=== PATIENT | male | born 1965 | race Caucasian/White ===

== ENCOUNTER 2024-02-19 18:48 | Inpatient (IN) | payer OTHER ==
[~2024-02-19] VITALS: Ht 188 cm; Wt 152.7 kg
[2024-02-19 21:29] LABS: BASOPHILS # (AUTO) 0.1 X10'3 (0-0.2); BASOPHILS % (AUTO) 0.8 % (0-1); EOSINOPHILS # (AUTO) 0.6 X10'3 (0-0.9); EOSINOPHILS % (AUTO) 5.7 % (0-6); HEMATOCRIT 37.9 % (42.0-52.0); HEMOGLOBIN 12.7 g/dl (14.0-17.9); LYMPHOCYTES % (AUTO) 20.8 % (21-51); MEAN CORPUSCULAR HEMOGLOBIN 30.9 PG (27.0-31.0); MEAN CORPUSCULAR HGB CONC 33.5 g/dL (33.0-36.5); MEAN CORPUSCULAR VOLUME 92.3 FL (78-98); MEAN PLATELET VOLUME 9.2 FL (7.4-10.4); MONOCYTES # (AUTO) 0.6 X10'3 (0-0.9); MONOCYTES % (AUTO) 6.3 % (2-12); NEUTROPHILS # (AUTO) 6.5 X10'3 (1.8-7.7); NEUTROPHILS % (AUTO) 66.4 % (42-75); PLATELET COUNT 184 X10'3 (140-440); RED BLOOD COUNT 4.11 X10'6 (4.70-6.10); RED CELL DISTRIBUTION WIDTH 14.9 % (11.5-14.5); WHITE BLOOD COUNT 9.7 X10'3 (4.5-11.0)
[2024-02-19 21:38] LABS: APTT 27 SECONDS (22-32); PROTHROMBIN TIME 10.9 SECONDS (9.0-12.0)
[2024-02-19 21:41] LABS: ALANINE AMINOTRANSFERASE 85 U/L (12-78); ALBUMIN 3.4 G/DL (3.4-5.0); ALBUMIN/GLOBULIN RATIO 0.8 (1.1-1.5); ALKALINE PHOSPHATASE 85 IU/L (46-116); ANION GAP 7 (8-16); ASPARTATE AMINO TRANSFERASE 74 U/L (10-37); BILIRUBIN,TOTAL 0.3 MG/DL (0.1-1.0); BLOOD UREA NITROGEN 18 MG/DL (7-18); BUN/CREATININE RATIO 17.8 (10.0-20.0); C-REACTIVE PROTEIN 1.06 MG/DL (0.0-0.5); CALCIUM 8.6 MG/DL (8.5-10.1); CHLORIDE 108 MMOL/L (99-107); CREATININE 1.01 MG/DL (0.60-1.10); GLUCOSE 99 MG/DL (70-104); POTASSIUM 3.4 MMOL/L (3.5-5.1); SODIUM 142 MMOL/L (135-145); TOTAL CARBON DIOXIDE 26.9 MMOL/L (24-32); TOTAL PROTEIN 7.8 G/DL (6.4-8.2); eCRCL 93 ML/MIN; eGFR 76 ML/MIN
[2024-02-19] MEDS: vancomycin/NS 1 GM ADD-VANTAGE 250 ML IV ONE (21:53)
[2024-02-19] MEDS: piperacillin/tazo 3.375gm/50ml 50 ML IV ONE (21:53)
[2024-02-20] VITALS (9 sets, daily range): BP systolic 131–149; BP diastolic 72–86; PULSE 56–69; RESP 14–17; TEMP 96–98.2; O2SAT 95–100
[2024-02-20] MEDS ORDERED: potassium Cl 40MEQ/1/2NS 520ml 520 ML IV PRN (00:40)
[2024-02-20] MEDS ORDERED: morphine 2 MG/ML inj. syringe IV PRN (00:40)
[2024-02-20] MEDS ORDERED: HYDROcodone/acetaminophen 5mg/325mg tablet PO PRN (00:40)
[2024-02-20] MEDS ORDERED: ondansetron/PF 4mg/2ml inj IV PRN (00:40)
[2024-02-20] MEDS ORDERED: mag hydrox/Alum hydrox/simeth 30ml oral suspension PO PRN (00:40)
[2024-02-20] MEDS ORDERED: acetaminophen 325mg tablet PO PRN ×2 (00:40)
[2024-02-20] MEDS ORDERED: magnesium 2GM in 50ml NS 50 ML IV PRN (00:40)
[2024-02-20] MEDS ORDERED: magnesium hydroxide 30ml (MOM) UD suspension PO PRN (00:40)
[2024-02-20] MEDS ORDERED: magnesium 4gm in 100ml NS 100 ML IV PRN (00:40)
[2024-02-20] MEDS ORDERED: magnesium Cl slow-release 64mg tablet PO PRN (00:40)
[2024-02-20] MEDS ORDERED: potassium Cl 20 mEq SR tablet PO PRN ×2 (00:40)
[2024-02-20 04:13] LABS: BILIRUBIN,URINE NEGATIVE (Neg); CLARITY,URINE CLEAR (Clear); COLOR,URINE YELLOW (Yellow); GLUCOSE, URINE NEGATIVE (Neg); KETONES,URINE NEGATIVE (Neg); LEUKOCYTE ESTERASE ,URINE NEGATIVE (Neg); NITRITES, URINE NEGATIVE (Neg); OCCULT BLOOD,URINE NEGATIVE (Neg); PROTEIN,URINE NEGATIVE (Neg); UROBILINOGEN,URINE 0.2 E.U/dL (0.2-1.0)
[2024-02-20 04:21] LABS: MAGNESIUM 2.1 MG/DL (1.5-2.4); POTASSIUM 3.5 MMOL/L (3.5-5.1)
[2024-02-20 04:22] LABS: UA COLLECTION TYPE URINAL
[2024-02-20 04:26] LABS: URINE AMPHETAMINE SCREEN POSITIVE (Neg); URINE BARBITUATE SCREEN NEGATIVE (Neg); URINE BENZODIAZEPINES SCREEN NEGATIVE (Neg); URINE CANNABINOID SCREEN NEGATIVE (Neg); URINE COCAINE SCREEN NEGATIVE (Neg); URINE METHADONE SCREEN NEGATIVE (Neg); URINE PHENCYCLIDINE SCREEN NEGATIVE (Neg)
[2024-02-20] MEDS: K and/or MAG REPLACEMENT MC SCH (08:00)
[2024-02-20] MEDS: piperacillin/tazo 3.375gm/50ml 50 ML IV SCH (09:42)
[2024-02-20] MEDS: heparin, porcine 5000 units/ml vial SQ SCH (10:00)
[2024-02-20] MEDS: docusate sod 100mg capsule PO SCH (10:00)
[2024-02-20 14:21] LABS: CHOL/HDL RATIO 4.4 (0.00-4.99); CHOLESTEROL 163 MG/DL (0-200); HDL CHOLESTEROL 37 MG/DL (35-60); LDL CHOLESTEROL 116 MG/DL (50-100); TRIGLYCERIDES 81 MG/DL (20-135)
[2024-02-20] MEDS: vancomycin/NS 1 GM ADD-VANTAGE 250 ML IV SCH (15:17)
[2024-02-21] VITALS (9 sets, daily range): BP systolic 136–176; BP diastolic 64–95; PULSE 49–79; RESP 14–18; TEMP 96.2–98; O2SAT 96–100
[2024-02-21 06:25] LABS: BASOPHILS % (AUTO) 0.4 % (0-1); EOSINOPHILS # (AUTO) 0.4 X10'3 (0-0.9); EOSINOPHILS % (AUTO) 5.8 % (0-6); HEMATOCRIT 35.8 % (42.0-52.0); HEMOGLOBIN 11.9 g/dl (14.0-17.9); LYMPHOCYTES # (AUTO) 1.9 X10'3 (1.1-4.8); LYMPHOCYTES % (AUTO) 26.7 % (21-51); MEAN CORPUSCULAR HEMOGLOBIN 30.8 PG (27.0-31.0); MEAN CORPUSCULAR HGB CONC 33.2 g/dL (33.0-36.5); MEAN CORPUSCULAR VOLUME 92.8 FL (78-98); MEAN PLATELET VOLUME 9.2 FL (7.4-10.4); MONOCYTES # (AUTO) 0.4 X10'3 (0-0.9); MONOCYTES % (AUTO) 5.1 % (2-12); NEUTROPHILS # (AUTO) 4.5 X10'3 (1.8-7.7); PLATELET COUNT 157 X10'3 (140-440); RED BLOOD COUNT 3.86 X10'6 (4.70-6.10); RED CELL DISTRIBUTION WIDTH 14.5 % (11.5-14.5); WHITE BLOOD COUNT 7.3 X10'3 (4.5-11.0)
[2024-02-21 06:35] LABS: ALANINE AMINOTRANSFERASE 60 U/L (12-78); ALBUMIN 2.8 G/DL (3.4-5.0); ALBUMIN/GLOBULIN RATIO 0.7 (1.1-1.5); ALKALINE PHOSPHATASE 67 IU/L (46-116); ANION GAP 5 (8-16); ASPARTATE AMINO TRANSFERASE 35 U/L (10-37); BILIRUBIN,TOTAL 0.4 MG/DL (0.1-1.0); BLOOD UREA NITROGEN 16 MG/DL (7-18); BUN/CREATININE RATIO 16.5 (10.0-20.0); CALCIUM 8.2 MG/DL (8.5-10.1); CHLORIDE 108 MMOL/L (99-107); CHOL/HDL RATIO 4.8 (0.00-4.99); CHOLESTEROL 163 MG/DL (0-200); CREATININE 0.97 MG/DL (0.60-1.10); GLUCOSE 99 MG/DL (70-104); HDL CHOLESTEROL 34 MG/DL (35-60); LDL CHOLESTEROL 118 MG/DL (50-100); MAGNESIUM 2.1 MG/DL (1.5-2.4); PHOSPHORUS 3.5 MG/DL (2.3-4.5); POTASSIUM 3.8 MMOL/L (3.5-5.1); SODIUM 141 MMOL/L (135-145); TOTAL CARBON DIOXIDE 28.3 MMOL/L (24-32); TOTAL PROTEIN 6.7 G/DL (6.4-8.2); TRIGLYCERIDES 103 MG/DL (20-135); eCRCL 97 ML/MIN; eGFR 79 ML/MIN
[2024-02-21 06:51] LABS: APTT 26 SECONDS (22-32)
[2024-02-21] MEDS ORDERED: AMOX-318 PO (09:59)
[2024-02-21] MEDS: VANCOMYCIN LEVEL IV ONE (14:30)
[2024-02-21] MEDS: atorvastatin 20mg tablet PO SCH (16:37)
[2024-02-22 03:44] VITALS: PULSE 62; RESP 15; O2SAT 98
[2024-02-22 07:15] LABS: BASOPHILS # (AUTO) 0.1 X10'3 (0-0.2); BASOPHILS % (AUTO) 0.8 % (0-1); EOSINOPHILS # (AUTO) 0.4 X10'3 (0-0.9); EOSINOPHILS % (AUTO) 5.8 % (0-6); HEMATOCRIT 37.8 % (42.0-52.0); HEMOGLOBIN 12.8 g/dl (14.0-17.9); LYMPHOCYTES # (AUTO) 1.8 X10'3 (1.1-4.8); LYMPHOCYTES % (AUTO) 25.8 % (21-51); MEAN CORPUSCULAR HEMOGLOBIN 31.4 PG (27.0-31.0); MEAN CORPUSCULAR HGB CONC 33.8 g/dL (33.0-36.5); MEAN CORPUSCULAR VOLUME 92.9 FL (78-98); MEAN PLATELET VOLUME 9.3 FL (7.4-10.4); MONOCYTES # (AUTO) 0.4 X10'3 (0-0.9); NEUTROPHILS # (AUTO) 4.3 X10'3 (1.8-7.7); NEUTROPHILS % (AUTO) 61.6 % (42-75); PLATELET COUNT 173 X10'3 (140-440); RED BLOOD COUNT 4.07 X10'6 (4.70-6.10); RED CELL DISTRIBUTION WIDTH 14.4 % (11.5-14.5); WHITE BLOOD COUNT 6.9 X10'3 (4.5-11.0)
[2024-02-22 07:33] LABS: APTT 27 SECONDS (22-32); PROTHROMBIN TIME 10.9 SECONDS (9.0-12.0)
[2024-02-22 07:48] LABS: ALANINE AMINOTRANSFERASE 60 U/L (12-78); ALBUMIN 2.9 G/DL (3.4-5.0); ALBUMIN/GLOBULIN RATIO 0.7 (1.1-1.5); ALKALINE PHOSPHATASE 75 IU/L (46-116); ANION GAP 5 (8-16); ASPARTATE AMINO TRANSFERASE 28 U/L (10-37); BILIRUBIN,TOTAL 0.2 MG/DL (0.1-1.0); BLOOD UREA NITROGEN 14 MG/DL (7-18); BUN/CREATININE RATIO 15.6 (10.0-20.0); CALCIUM 8.4 MG/DL (8.5-10.1); CHLORIDE 108 MMOL/L (99-107); GLUCOSE 99 MG/DL (70-104); MAGNESIUM 2.1 MG/DL (1.5-2.4); PHOSPHORUS 4.1 MG/DL (2.3-4.5); SODIUM 143 MMOL/L (135-145); TOTAL CARBON DIOXIDE 29.8 MMOL/L (24-32); TOTAL PROTEIN 7.1 G/DL (6.4-8.2); eCRCL 104 ML/MIN; eGFR 87 ML/MIN
[2024-02-22 08:00] VITALS: RESP 15
[2024-02-22 18:00] VITALS: BP 128/77; PULSE 60; RESP 15; TEMP 97.4; O2SAT 97
[2024-02-22 20:30] VITALS: RESP 16
[2024-02-22 22:00] VITALS: BP 162/78; PULSE 58; RESP 14; TEMP 98.6; O2SAT 100
[2024-02-22 23:45] VITALS: PULSE 58; RESP 16; O2SAT 98
[2024-02-23 03:32] VITALS: PULSE 60; RESP 12; O2SAT 98
[2024-02-23 06:00] VITALS: BP 151/61; PULSE 55; RESP 16; TEMP 98.7; O2SAT 98
[2024-02-23 06:58] LABS: APTT 27 SECONDS (22-32); PROTHROMBIN TIME 11.2 SECONDS (9.0-12.0)
[2024-02-23 07:01] LABS: BASOPHILS % (AUTO) 0.6 % (0-1); EOSINOPHILS # (AUTO) 0.4 X10'3 (0-0.9); HEMATOCRIT 38.6 % (42.0-52.0); LYMPHOCYTES # (AUTO) 1.9 X10'3 (1.1-4.8); LYMPHOCYTES % (AUTO) 26.4 % (21-51); MEAN CORPUSCULAR HEMOGLOBIN 31.5 PG (27.0-31.0); MEAN CORPUSCULAR HGB CONC 33.7 g/dL (33.0-36.5); MEAN CORPUSCULAR VOLUME 93.4 FL (78-98); MEAN PLATELET VOLUME 9.2 FL (7.4-10.4); MONOCYTES # (AUTO) 0.4 X10'3 (0-0.9); MONOCYTES % (AUTO) 6.1 % (2-12); NEUTROPHILS # (AUTO) 4.4 X10'3 (1.8-7.7); NEUTROPHILS % (AUTO) 60.9 % (42-75); PLATELET COUNT 184 X10'3 (140-440); RED BLOOD COUNT 4.14 X10'6 (4.70-6.10); RED CELL DISTRIBUTION WIDTH 14.5 % (11.5-14.5); WHITE BLOOD COUNT 7.2 X10'3 (4.5-11.0)
[2024-02-23 07:14] LABS: ALANINE AMINOTRANSFERASE 59 U/L (12-78); ALBUMIN 2.9 G/DL (3.4-5.0); ALBUMIN/GLOBULIN RATIO 0.7 (1.1-1.5); ALKALINE PHOSPHATASE 74 IU/L (46-116); ANION GAP 8 (8-16); ASPARTATE AMINO TRANSFERASE 30 U/L (10-37); BILIRUBIN,TOTAL 0.2 MG/DL (0.1-1.0); BLOOD UREA NITROGEN 14 MG/DL (7-18); BUN/CREATININE RATIO 16.7 (10.0-20.0); CALCIUM 8.5 MG/DL (8.5-10.1); CHLORIDE 107 MMOL/L (99-107); CREATININE 0.84 MG/DL (0.60-1.10); GLUCOSE 112 MG/DL (70-104); MAGNESIUM 1.9 MG/DL (1.5-2.4); PHOSPHORUS 4.1 MG/DL (2.3-4.5); POTASSIUM 3.9 MMOL/L (3.5-5.1); SODIUM 140 MMOL/L (135-145); TOTAL CARBON DIOXIDE 25.4 MMOL/L (24-32); TOTAL PROTEIN 7.2 G/DL (6.4-8.2); eCRCL 111 ML/MIN; eGFR > 90 ML/MIN
[2024-02-23 10:00] VITALS: BP 142/88; PULSE 56; RESP 18; TEMP 97.2; O2SAT 97
[2024-02-23] MEDS ORDERED: ATOR20TA66 PO (10:44)
[2024-02-23] MEDS ORDERED: AMOX-318 PO (10:44)
== END 2024-02-23 14:20 | disposition home or self-care (01) | DRG 603 ==
LOC: ER 18:50 → ED HOLD 02-20 00:49 → ORTHO 4S 02-20 09:36
PROVIDERS: ADMIT Family Medicine; ATTEND Family Medicine
PROC: 5A09357 Assistance with Respiratory Ventilation, Less than 24 Consecutive Hours, Continuous Positive Airway Pressure (ICD-10-PCS; 2024-02-20)
PROC: CW1D1ZZ Planar Nuclear Medicine Imaging of Lower Extremity using Technetium 99m (Tc-99m) (ICD-10-PCS; principal; 2024-02-21)
PROC: 5A09357 Assistance with Respiratory Ventilation, Less than 24 Consecutive Hours, Continuous Positive Airway Pressure (ICD-10-PCS; 2024-02-21)
DX: L03.115 Cellulitis of right lower limb (principal); Z68.41 Body mass index [BMI] 40.0-44.9, adult; E66.01 Morbid (severe) obesity due to excess calories; E78.5 Hyperlipidemia, unspecified; I10 Essential (primary) hypertension; R74.01 Elevation of levels of liver transaminase levels; G47.33 Obstructive sleep apnea (adult) (pediatric); G89.29 Other chronic pain
CPT/HCPCS: 36415; 73700; 78315; 80053; 80061; 80202; 80305; 81003; 83036; 83605; 83735; 84100; 84132; 84145; 85025; 85610; 85651; 85730; 86140; 87040; 94660; 94760; 99285; A6258; A6446; A6449; A9503; G0378; J1644; J2543; J3370; J7040

== ENCOUNTER 2025-06-07 09:21 | Inpatient (IN) | payer BC, MEDICAID ==
[~2025-06-07] VITALS: Ht 188 cm; Wt 150.0 kg
[~2025-06-07 09:21] MED LIST: AMOX-318 PO; ATOR20TA66 PO
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
[2025-06-07 10:08] LABS: LEUKOCYTE ESTERASE ,URINE MODERATE (Neg); NITRITES, URINE NEGATIVE (Neg); OCCULT BLOOD,URINE SMALL (Neg)
[2025-06-07 10:10] LABS: MEAN PLATELET VOLUME 9.0 FL (7.4-10.4); RED CELL DISTRIBUTION WIDTH 14.6 % (11.5-14.5)
[2025-06-07 10:18] LABS: CREATININE 0.97 MG/DL (0.60-1.10); TOTAL CARBON DIOXIDE 25.4 MMOL/L (24-32); eCRCL 95 ML/MIN; eGFR 79 ML/MIN
[2025-06-07 10:24] LABS: UA COLLECTION TYPE NON-SPECIFIED
[2025-06-07 10:25] LABS: HYALINE CASTS 0-3 /LPF (NEGATIVE); MUCUS STRANDS FEW /LPF (Neg); SQUAMOUS EPITHELIAL CELL,UR FEW /LPF (FEW)
--- NOTE | 2025-06-07 10:29 | RADIOLOGY REPORT ---
CLINICAL INDICATION: RIGHT foot infection previous hardware TECHNIQUE: DI FOOT, COMPLETE (3VW MIN) Comparison: CT CT LOWER EXTREMITY on DOS: 02/19/24 FINDINGS/IMPRESSION: : Postsurgical changes of the 1st MTP. Severe diffuse soft-tissue swelling and edema. Postsurgical changes of the ankle joint.
[2025-06-07] MEDS ORDERED: iohexol 300mg/ml 100ml inj. ONE (11:22)
[2025-06-07] MEDS: normal saline 1000ML IV soln IVB ONE (11:58)
[2025-06-07] MEDS: vancomycin/NS 1 GM ADD-VANTAGE 250 ML IV ONE (11:58)
--- NOTE | 2025-06-07 12:19 | RADIOLOGY REPORT ---
CLINICAL INFORMATION: Postsurgical complication. Evaluate for osteomyelitis. TECHNIQUE: Axial CT images of the left foot from prior arthrodesis of the 1st MTP joint were obtained after the uneventful administration of 100 mL Omnipaque 300 IV contrast. Coronal and sagittal reformatted images were obtained, reviewed, and stored. All CT scans at this medical facility are performed using dose modulation techniques as appropriate to a performed exam including the following: Automated exposure control was utilized; adjustment of the MA and/or KV according to patient size; and use of iterative reconstruction technique. CTDIvol = 7.76 mGy DLP = 188.35 mGy-cm COMPARISON: CT CT LOWER EXTREMITY on DOS: 02/19/24 FINDINGS: Partially visualized postsurgical changes of prior open reduction internal fixation of the tibia. Postsurgical changes of arthrodesis at the 1st MTP joint. Visualized surgical hardware hardware appears intact. There is lucency at the base of the 1st proximal phalanx and portions of the 1st me tatarsal head, may be seen with osteomyelitis, although only mild adjacent subcutaneous edema is seen with no organized fluid collection and no visualized adjacent wound. Possibly noninfective osteolysis. There is a wound at the posterior aspect of the foot near the level of the posterior calcaneus with adjacent soft tissue edema and skin thickening, likely cellulitis. No peripherally enhancing fluid collection identified to suggest abscess. No erosive changes or suspicious periosteal reaction or cortical destruction at the calcaneus to suggest osteomyelitis. There are moderate to severe arthritic changes at the 2nd tarsometatarsal joint. IMPRESSION: 1. Wound at the posterior aspect of the foot near the calcaneus with associated soft tissue inflammatory changes, likely cellulitis and possible phlegmon in the appropriate clinical setting. No peripherally enhancing collection to suggest abscess. No CT evidence for osteomyelitis in the calcaneus. 2. Postsurgical changes of arthrodesis at the 1st MTP joint. There is prominent lucency at the base of the proximal phalanx of the 1st digit and at the 1st metatarsal head without significant adjacent soft tissue inflammatory changes expected for osteomyelitis, possibly noninfective osteolysis. Correlate with clinical findings. 3. Additional findings as detailed above.
[2025-06-07] MEDS ORDERED: NO HOME MEDS (13:05)
[2025-06-07] MEDS: piperacillin/tazo 3.375gm/50ml 50 ML IV SCH (14:02)
[2025-06-07] MEDS ORDERED: magnesium sulf-water 2g/50mL 50 ML IV PRN (14:35)
[2025-06-07] MEDS ORDERED: potassium Cl 40MEQ/1/2NS 520ml 520 ML IV PRN (14:35)
[2025-06-07] MEDS ORDERED: magnesium sulf-water 4G/100mL 100 ML IV PRN (14:35)
[2025-06-07] MEDS ORDERED: magnesium Cl slow-release 64mg tablet PO PRN (14:35)
[2025-06-07] MEDS ORDERED: ondansetron/PF 4mg/2ml inj IV PRN (14:35)
[2025-06-07] MEDS ORDERED: potassium Cl 20 mEq SR tablet PO PRN ×2 (14:35)
[2025-06-07] MEDS: normal saline 1000ml 1,000 ML IV SCH (14:47)
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
[2025-06-07] MEDS ORDERED: HYDROcodone/acetaminophen 5mg/325mg tablet PO PRN (15:10)
[2025-06-07] MEDS ORDERED: morphine 4 MG/ML inj SYRINge IV PRN (15:10)
[2025-06-07 15:48] LABS: URINE AMPHETAMINE SCREEN POSITIVE (Neg); URINE BARBITUATE SCREEN NEGATIVE (Neg); URINE BENZODIAZEPINES SCREEN NEGATIVE (Neg); URINE CANNABINOID SCREEN NEGATIVE (Neg); URINE COCAINE SCREEN NEGATIVE (Neg); URINE METHADONE SCREEN NEGATIVE (Neg); URINE OPIATE SCREEN NEGATIVE (Neg); URINE PHENCYCLIDINE SCREEN NEGATIVE (Neg)
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
--- NOTE | 2025-06-07 16:08 | RADIOLOGY REPORT ---
CLINICAL INDICATION: post op TECHNIQUE: DI TIB/FIB 2 VWS Comparison: CT CT LOWER EXTREMITY W/ IV CONTRAST on DOS: 06/07/25, FINDINGS/IMPRESSION: : Intramedullary nail and interlocking screw fixation of the right tibia traversing a healed mid to distal right tibia fracture deformity. No periprosthetic lucency or acute fracture. There is a chronic appearing distal fibula fracture. Note is made of a fabella. Scattered surgical clips adjacent to the distal tibia. Subcutaneous edema in the distal right lower extremity.
[2025-06-07 18:00] VITALS: BP 153/95; PULSE 74; RESP 20; TEMP 97.3; O2SAT 96
[2025-06-07 18:15] VITALS: BP 135/68; PULSE 75; RESP 16; TEMP 97.8; O2SAT 99
[2025-06-07] MEDS: K and/or MAG REPLACEMENT MC SCH (19:38)
[2025-06-07 20:00] VITALS: RESP 20; O2SAT 96
[2025-06-07] MEDS: vancomycin/NS 1 GM ADD-VANTAGE 250 ML IV SCH (20:23)
[2025-06-07 22:00] VITALS: BP 149/62; PULSE 63; RESP 20; TEMP 98; O2SAT 97
[2025-06-08 06:29] LABS: MEAN PLATELET VOLUME 9.6 FL (7.4-10.4); RED CELL DISTRIBUTION WIDTH 14.4 % (11.5-14.5)
[2025-06-08 06:33] VITALS: BP 151/82; PULSE 68; RESP 20; TEMP 97.3; O2SAT 96
[2025-06-08 06:47] LABS: CHOL/HDL RATIO 5.6 (0.00-4.99); CREATININE 0.90 MG/DL (0.60-1.10); LDL CHOLESTEROL 127 MG/DL (50-100); TOTAL CARBON DIOXIDE 25.7 MMOL/L (24-32); eCRCL 103 ML/MIN; eGFR 86 ML/MIN
[2025-06-08] MEDS: enoxaparin 40mg/0.4ml syringe SUBCUT SCH (08:46)
[2025-06-08] MEDS ORDERED: normal saline 1000ml 1,000 ML IV SCH (09:45)
[2025-06-08] MEDS ORDERED: normal saline 500ml IV soln 500 ML IV ONE (09:45)
[2025-06-08 10:00] VITALS: BP 116/63; PULSE 70; RESP 20; TEMP 97.5; O2SAT 96
[2025-06-08] MEDS: VANCOMYCIN LEVEL IV ONE (10:36)
--- NOTE | 2025-06-08 14:10 | PROGRESS NOTE- Residence ---
Progress Note - Resident Providers to CC Resident Creating Document: CAIN RUELAS RES ~ Antibiotic Timeout Antibiotic Ordered?: Yes Subjective Patient was seen at the bedside. No overnight events reported. He does not report any issues or concerns; pain controlled. Objective Vital Signs Date Time Temp Pulse Resp B/P (MAP) Pulse Ox O2 Delivery O2 Flow Rate FiO2 06/08/25 10:00 97.5 70 20 116/63 (80) 96 Room Air 06/08/25 10:00 0.0 General: Morbidly obese male, Awake and Alert, no acute distress. HEENT: Conjunctiva pink, Sclera clear, Mucus Membranes moist. Neck: Supple without masses and tenderness. Resp: Unlabored. Lungs clear to auscultation bilaterally. Heart: Regular Rate and rhythm, normal S1 and S2 without murmur, rub or gallop. Abdomen: Soft and non tender no organomegaly Extremities: No cyanosis,clubbing or edema. Right heel Flap with the accumulation of fluid Multiple surgical scars noted on the leg Skin: Warm and Dry. Result Diagram: 06/08/2552006/08/25520 Advance Care Planning Advanced Care plannin - 30 Minutes Assessment Assessment Mr. Tony is presented with right foot pain, fever, and chills for the past two days. He reports that the pain worsens with ambulation. His primary care physician, Dr. Lopez referred him to Dr. Alston (in February) for evaluation of recurrent right foot infection. At that time, and MRI demonstrated findings concerning for infection of the fixation patrick. The patient was advised that long-term IV antibiotics would be necessary prior to patrick removal. He had recently completed a two weeks' course of oral antibiotic which she does not remember the name. He reports that antibiotics help reduce swelling and erythema. However, his current presentation is notable for recurrence of symptoms; fever, chills, malaise prompting him to return. Plan Plan 1. Right foot cellulitis with possible phlegmon WBC 16.6, CRP elevated; 12.34. Does not meet SIRS/sepsis criteria CT; soft tissue inflammatory changes, likely cellulitis with possible phlegmon No CTA evidence of calcaneal osteomyelitis Plan: Broad-spectrum IV antibiotics; vancomycin IV and Zosyn initiated Trend CBC, ESR, CRP IV hydration; NS 100 mL/hour 2. Possible hardware/underlying osteomyelitis CT does not show osteomyelitis but can not fully exclude ESR elevated Plan Continue IV antibiotics Orthopedic consult; Dr. Lopez ; scheduled for foot hardware removal on Tuesday Monitor for systemic signs of worsening infection June 08, 2025: Preliminary blood culture negative. WBC trended down; 14, ESR 60. Initially, he was started on vancomycin and Zosyn. After discussion with Dr. Dan (ID), Zosyn was discontinued and vancomycin continued. UA suggests UTI; ceftriaxone was added. Urine tox positive for methamphetamine. Patient is now on vancomycin plus ceftriaxone. Scheduled for hardware removal by Dr. Lopez on Tuesday. 3. Urinary tract infection UA suggestive of UTI Ceftriaxone 1 g IV daily initiated today 4. Morbid obesity Increases risk for recurrent cellulitis and impaired wound healing Mobility encouragement, foot care education, nutrition consult 5. Hypertension Amlodipine 10 mg p.o. daily 6. Hyperlipidemia Lipid panel ordered Continue atorvastatin 40 mg p.o. daily 7. History of methamphetamine use disorder Quit one year ago, no active use reported Urine toxicology positive for methamphetamine Substance use navigator consult requested 8. Complex regional pain syndrome type 1 Consider if pain appears disproportionate to infection severity, persists despite adequate antibiotic therapy and is accompanied by trophic, autonomic changes Code status: Full code DVT prophylaxis: Juan Ruelas Internal Medicine Resident, PGY-3 Date of Service: Jun 08, 2025 Billing Provider: CHELLY LEMUS MD Common Visit Codes: [id number] INP/OBS CARE(HIGH) CAIN RUELAS, RES Jun 08, 2025 14:10 CHELLY LEMUS MD Jun 09, 2025 08:08
[2025-06-08 18:00] VITALS: BP 141/88; PULSE 79; RESP 17; TEMP 97.7; O2SAT 98
[2025-06-08 20:00] VITALS: RESP 18; O2SAT 94
[2025-06-08] MEDS: CefTRIAXone/D5W-Rocephin 1gm 50 ML IV SCH (20:58)
[2025-06-08] MEDS: VANCOmycin 1250MG/NS 250ml Bag 250 ML IV SCH (20:59)
[2025-06-08 22:00] VITALS: BP 145/81; PULSE 78; RESP 18; TEMP 97.6; O2SAT 94
[2025-06-09 06:00] VITALS: BP 136/82; PULSE 71; RESP 18; TEMP 97.5; O2SAT 95
[2025-06-09 06:06] LABS: MEAN PLATELET VOLUME 9.6 FL (7.4-10.4); RED CELL DISTRIBUTION WIDTH 14.4 % (11.5-14.5)
[2025-06-09 07:00] LABS: CREATININE 0.80 MG/DL (0.60-1.10); TOTAL CARBON DIOXIDE 24.6 MMOL/L (24-32); eCRCL 116 ML/MIN; eGFR > 90 ML/MIN
[2025-06-09 08:21] VITALS: RESP 18; O2SAT 95
--- NOTE | 2025-06-09 08:40 | RADIOLOGY REPORT ---
DI CHEST,SINGLE VIEW, HISTORY: PRE OP COMPARISON: None None TECHNICAL DATA: 1 view of the chest was obtained. FINDINGS: Lines and tubes: None Cardiomediastinal silhouette: normal Pulmonary vasculature: prominent Lung expansion: low Lung airspace: normal Lung interstitium: normal Pleura: normal Pneumothorax: no Bones: Unremarkable Other: no IMPRESSION: Pulmonary vascular congestion.
--- NOTE | 2025-06-09 09:38 | PROGRESS NOTE- Residence ---
Progress Note - Resident Providers to CC Resident Creating Document: JORGE LESLIE, KIRT ~ Central Line/PICC still needed: N\A Sher-Non Protocol Sher Indications Met/Not Met: F/C Indications Not Met Antibiotic Timeout Antibiotic Ordered?: Yes Subjective Patient was seen at the bedside. No overnight events reported. He does not report any issues or concerns; pain controlled. Objective Vital Signs Date Time Temp Pulse Resp B/P (MAP) Pulse Ox O2 Delivery O2 Flow Rate FiO2 06/09/25 08:21 18 95 Room Air 0.0 06/09/25 07:23 71 06/09/25 06:00 97.5 136/82 (100) Result Diagram: 06/09/25 0510 06/09/25 0510 General: Well alert, well oriented, not confused, not agitated, not in acute distress, well cooperated during the physical. HEENT: Conjunctive are pink, sclerae clear, no icterus, pupil is equal in both sides, reactive to light, no ear discharge, no pharyngeal erythema or an edema. Neck: Supple, no JVD, no lymphadenopathy and thyromegaly. Chest: Equal air entry on both lungs, no added sounds, no wheeze. Cardiovascular: S1-S2 regular sinus rhythm and, regular rate, no gallops, no rubs, no murmurs Abdomen: No visible peristalsis, Bowel sounds present on auscultation, soft, nontender, no guarding, no rigidity Extremities: Right heel Flap with the accumulation of fluid Multiple surgical scars noted on the leg, all peripheral pulses felt. Central Nervous System: No focal neurological deficits, no motor or sensory weakness in all 4 extremities, could move all 4 extremities, 2+ deep tendon reflexes, negative Babinski. Musculoskeletal: No joint swelling, deformities, inflammations, and no scoliosis and back tenderness Skin: Warm and dry. Assessment Assessment Mr. Tony is presented with right foot pain, fever, and chills for the past two days. He reports that the pain worsens with ambulation. His primary care physician, Dr. Lopez referred him to Dr. Alston (in February) for evaluation of recurrent right foot infection. At that time, and MRI demonstrated findings concerning for infection of the fixation patrick. The patient was advised that long-term IV antibiotics would be necessary prior to patrick removal. He had recently completed a two weeks' course of oral antibiotic which he does not remember the name. He reports that antibiotics help reduce swelling and erythema. However, his current presentation is notable for recurrence of symptoms; fever, chills, malaise prompting him to return. Plan Plan 1. Right foot cellulitis with possible phlegmon Patient not in SIRS WBC trending down to 13.2 from 16.6. ESR 60, CRP elevated; 12.34. CT; soft tissue inflammatory changes, likely cellulitis with possible phlegmon No CTA evidence of calcaneal osteomyelitis Plan: Broad-spectrum IV antibiotics; vancomycin IV pharmacy to dose day 3 and ceftriaxone 1 g IV daily day 2 . Discontinued Zosyn 4.5 g IV daily Trend CBC, ESR, CRP IV hydration; NS 100 mL/hour 2. Possible hardware/underlying osteomyelitis CT does not show osteomyelitis but can not fully exclude ESR 60 Plan Continue IV antibiotics Orthopedic consult; Dr. Lopez ; scheduled for foot hardware removal on Tuesday Ordered preop chest x-ray and EKG NPO from 12:00 a.m. for Monitor for systemic signs of worsening infection 3. Urinary tract infection UA suggestive of UTI Ceftriaxone 1 g IV daily initiated today Hydration with 100 mL per hour IV normal saline 4. Morbid obesity Increases risk for recurrent cellulitis and impaired wound healing Mobility encouragement, foot care education, nutrition consult 5. Primary Hypertension Amlodipine 10 mg p.o. daily 6. Hyperlipidemia Lipid panel ordered Continue atorvastatin 40 mg p.o. daily 7. History of methamphetamine use disorder Quit one year ago, no active use reported Urine toxicology positive for methamphetamine Substance use navigator consult requested 8. Complex regional pain syndrome type 1 Consider if pain appears disproportionate to infection severity, persists despite adequate antibiotic therapy and is accompanied by trophic, autonomic changes On Ativan 1 mg q.8h p.o. p.r.n. for anxiety Code status: Full code DVT prophylaxis: Lovenox 40 mg subcutaneous daily Analgesia/sedation: Morphine/[place] Line/tube: PIV GI prophylaxis: None Nutrition: Regular diet PT: Ordered. Prognosis: Guarded Disposition: Continue medical management. NPO from midnight. Implant removal surgery with Dr. Lopez planned for tomorrow. Jorge Leslie MD PGY1, Internal Medicine [facility] Date of Service: Jun 09, 2025 Billing Provider: CHELLY LEMUS MD Common Visit Codes: [id number] INP/OBS CARE(HIGH) JORGE LESLIE, RES Jun 09, 2025 09:38 CHELLY LEMUS MD Jun 10, 2025 06:28
[2025-06-09 10:13] VITALS: BP 133/82; PULSE 72; RESP 16; TEMP 97.7; O2SAT 97
[2025-06-09 18:00] VITALS: BP 129/95; PULSE 76; RESP 18; TEMP 97.5; O2SAT 96
[2025-06-09 20:00] VITALS: RESP 17
[2025-06-09] MEDS: VANCOMYCIN LEVEL IV ONE (20:18)
[2025-06-09 22:00] VITALS: BP 129/95; PULSE 76; RESP 18; TEMP 97.5; O2SAT 96
[2025-06-10] VITALS (19 sets, daily range): BP systolic 94–143; BP diastolic 50–80; PULSE 60–83; RESP 13–21; TEMP 97.6–98.7; O2SAT 93–98
--- NOTE | 2025-06-10 05:17 | ELECTROCARDIOGRAPH REPORT ---
[facility] Test Date: 2025-06-09 Test Time: 22:15:19 Pat Name: DELL PASCAL Department: [id number] Room: [address] Gender: M Field Sales Engineer: : 1965 Requested By: CAIN MADISON Order Number: [id number] Reading MD: Dr. KEZIA Onofre Measurements Intervals Broussard Rate: 73 P: 56 RI: 200 QRS: -4 QRSD: 94 T: 58 QT: 408 QTc: 449 Interpretive Statements Normal sinus rhythm Inferior infarct , age undetermined Electronically Signed On 06-10-2025 17:11:[address] KEZIA Onofre Please click the below link to view image of tracing.
[2025-06-10 06:12] LABS: MEAN PLATELET VOLUME 9.4 FL (7.4-10.4); RED CELL DISTRIBUTION WIDTH 14.1 % (11.5-14.5)
[2025-06-10 06:28] LABS: CREATININE 0.85 MG/DL (0.60-1.10); TOTAL CARBON DIOXIDE 26.8 MMOL/L (24-32); eCRCL 109 ML/MIN; eGFR > 90 ML/MIN
[2025-06-10] MEDS: levoFLOXACIN-Levaquin 500mg/D5 100 ML IV SCH (08:15)
[2025-06-10 09:10] LABS: BANDS% (MANUAL) 1.0 % (0-10); EOSINOPHILS % (MANUAL) 1.0 % (0-6); LARGE PLATELETS FEW; LYMPHOCYTES % (MANUAL) 22.0 % (21-51); METAMYLEOCYTES% (MANUAL) 1.0 % (0-0); MONOCYTES % (MANUAL) 2.0 % (2-12); NEUTROPHILS % (MANUAL) 73.0 % (42-75); NUCLEATED RED BLOOD CELLS 1 /100WBC (0-0); PLATELET ESTIMATE NORMAL
[2025-06-10] MEDS ORDERED: BUPIVAcaine 2.5mg/ml inj 50ml vial (contains preservative) ONE (10:02)
[2025-06-10] MEDS ORDERED: BUPIVAcaine 0.5% inj/PF 0 ML ONE (10:02)
--- NOTE | 2025-06-10 10:30 | CONSULTATION REPORT ---
Consult Consult Consultation Full note dictated. He is known to me from clinic. He has osteomyelitis right 5th toe. He is currently in the OR for [facility]. Need to get insurance established if we are going to pursue outpatient IV therapy. 5th toe amputation is a possibility. Will see patient tomorrow or Tuesday. CHINO PETERS MD Jun 10, 2025 10:30
[2025-06-10 10:51] LABS: URINE AMPHETAMINE SCREEN NEGATIVE (Neg); URINE BARBITUATE SCREEN NEGATIVE (Neg); URINE BENZODIAZEPINES SCREEN NEGATIVE (Neg); URINE CANNABINOID SCREEN NEGATIVE (Neg); URINE COCAINE SCREEN NEGATIVE (Neg); URINE METHADONE SCREEN NEGATIVE (Neg); URINE OPIATE SCREEN POSITIVE (Neg); URINE PHENCYCLIDINE SCREEN NEGATIVE (Neg)
[2025-06-10] MEDS ORDERED: ondansetron/PF 4mg/2ml inj IV PRN (11:35)
[2025-06-10] MEDS: ringers solution, lacted 1,000 ML IV SCH (11:35)
[2025-06-10] MEDS ORDERED: HYDROmorphone/PF 0.2 MG/ML SYRINGE IV PRN ×2 (11:35)
[2025-06-10] MEDS ORDERED: morphine 4 MG/ML inj SYRINge IV PRN (11:35)
[2025-06-10] MEDS ORDERED: labetalol 20mg/4ml (5mg/ml) syringe IV PRN (11:35)
[2025-06-10] MEDS ORDERED: acetaminophen 1,000mg/100ml IV 100 ML IV PRN (11:35)
[2025-06-10] MEDS ORDERED: hydrALAZINE 20mg/ml inj. IV PRN (11:35)
[2025-06-10] MEDS ORDERED: MIDAZolam 1 MG/ML 5ML VIAL ONE (11:37)
[2025-06-10] MEDS ORDERED: fentaNYL /PF 50mcg/ml 5ml ampule ONE (11:44)
--- NOTE | 2025-06-10 12:41 | PROGRESS NOTE- Residence ---
Progress Note - Resident Providers to CC Resident Creating Document: NILAM RUELAS RES ~ Antibiotic Timeout Antibiotic Ordered?: Yes Subjective The patient is undergoing operative to go well of orthopedic hardware this morning. His urine culture grew Pseudomonas aeruginosa. Ceftriaxone which was initially initiated, was discontinued and transitioned to levofloxacin this morning based on sensitivity. Dr. Dan (ID) on board and will provide recommendations on prolonged IV antibiotic therapy. Objective Vital Signs Date Time Temp Pulse Resp B/P (MAP) Pulse Ox O2 Delivery O2 Flow Rate FiO2 06/10/25 09:49 18 Room Air 0.0 06/10/25 09:38 98.4 06/10/25 08:15 76 06/10/25 07:32 116/66 (83) 93 General: Morbidly obese male, Awake and Alert, no acute distress. HEENT: Conjunctiva pink, Sclera clear, Mucus Membranes moist. Neck: Supple without masses and tenderness. Resp: Unlabored. Lungs clear to auscultation bilaterally. Heart: Regular Rate and rhythm, normal S1 and S2 without murmur, rub or gallop. Abdomen: Soft and non tender no organomegaly Extremities: No cyanosis,clubbing or edema. Right heel Flap with the accumulation of fluid Multiple surgical scars noted on the leg Skin: Warm and Dry. Result Diagram: 06/10/2542306/10/25423 Advance Care Planning Advanced Care plannin - 30 Minutes Assessment Assessment Mr. Tony is presented with right foot pain, fever, and chills for the past two days. He reports that the pain worsens with ambulation. His primary care physician, Dr. Lopez referred him to Dr. Alston (in February) for evaluation of recurrent right foot infection. At that time, and MRI demonstrated findings concerning for infection of the fixation patrick. The patient was advised that long-term IV antibiotics would be necessary prior to patrick removal. He had recently completed a two weeks' course of oral antibiotic which he does not remember the name. He reports that antibiotics help reduce swelling and erythema. However, his current presentation is notable for recurrence of symptoms; fever, chills, malaise prompting him to return. Plan Plan 1. Right foot cellulitis with possible phlegmon Patient not in SIRS WBC trending down to 13.2 from 16.6. ESR 60, CRP elevated; 12.34. CT; soft tissue inflammatory changes, likely cellulitis with possible phlegmon No CTA evidence of calcaneal osteomyelitis Plan: Broad-spectrum IV antibiotics; vancomycin IV pharmacy to dose day 3 and ceftriaxone 1 g IV daily day 2 . Discontinued Zosyn 4.5 g IV daily Trend CBC, ESR, CRP IV hydration; NS 100 mL/hour 06/10/2025: Dr. Dan on board, recommendation on prolonged IV antibiotic therapy pending 2. Possible hardware/underlying osteomyelitis CT does not show osteomyelitis but can not fully exclude ESR 60 Plan Continue IV antibiotics Orthopedic consult; Dr. Lopez ; scheduled for foot hardware removal on Tuesday Ordered preop chest x-ray and rn placement for systemic signs of worsening infection 06/10/2025: Currently in OR, undergoing removal of hardware 3. Urinary tract infection UA suggestive of UTI Ceftriaxone 1 g IV daily initiated today Hydration with 100 mL per hour IV normal saline 06/10/2025: Urine culture grew Pseudomonas aeruginosa pansensitive sensitive including 2 levofloxacin. Ceftriaxone discontinued the levofloxacin initiated. 4. Morbid obesity Increases risk for recurrent cellulitis and impaired wound healing Mobility encouragement, foot care education, nutrition consult 5. Primary Hypertension Amlodipine 10 mg p.o. daily 6. Hyperlipidemia Lipid panel ordered Continue atorvastatin 40 mg p.o. daily 7. History of methamphetamine use disorder Quit one year ago, no active use reported Urine toxicology positive for methamphetamine Substance use navigator consult requested 8. Protein calorie malnutrition Serum albumin 2.7 Nutrition consult 9. Complex regional pain syndrome type 1 Consider if pain appears disproportionate to infection severity, persists despite adequate antibiotic therapy and is accompanied by trophic, autonomic changes On Ativan 1 mg q.8h p.o. p.r.n. for anxiety Code status: Full code DVT prophylaxis: Lovenox 40 mg subcutaneous daily Analgesia/sedation: Morphine/[place] Line/tube: PIV GI prophylaxis: None Nutrition: Regular diet PT: Ordered. Prognosis: Guarded Disposition: Continue medical management. NPO from midnight. Implant removal surgery with Dr. Lopez planned for tomorrow. Nilam Ruelas Internal Medicine Resident, PGY-3 Date of Service: Jun 10, 2025 Billing Provider: CHELLY LEMUS MD Common Visit Codes: [id number] INP/OBS CARE(HIGH) NILAM RUELAS, KIRT Jun 10, 2025 12:41 CHELLY LEMUS MD Jun 11, 2025 07:46
[2025-06-10] MEDS ORDERED: ROPIVAcaine 0.5% (5mg/ml) 30ml vial ONE (12:43)
[2025-06-10] MEDS ORDERED: ondansetron/PF 4mg/2ml inj ONE (12:43)
[2025-06-10] MEDS ORDERED: ePHEDrine 50MG/ML INJ. ONE (12:43)
[2025-06-10] MEDS ORDERED: propofol inj 20 ML IV ONE (12:43)
[2025-06-10] MEDS ORDERED: LIDOcaine 2% (20mg/ml) 5ml vial ONE (12:43)
[2025-06-10] MEDS ORDERED: dexamethasone sod phosphate 4mg/ml inj. ONE (12:43)
[2025-06-10] MEDS ORDERED: 0.9 % SODIUM CHLORIDE 10 ML VIAL ONE (12:47)
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
[2025-06-10] MEDS ORDERED: acetaminophen 1000 MG/100ml vial IV ONE (15:15)
[2025-06-10] MEDS ORDERED: glycopyrrolate 0.2mg/ml inj ONE (15:15)
[2025-06-10] MEDS ORDERED: rocuronium 10mg/ml inj IV ONE (15:15)
[2025-06-11] VITALS (7 sets, daily range): BP systolic 102–147; BP diastolic 60–83; PULSE 63–75; RESP 16–19; TEMP 97.1–98.2; O2SAT 95–98
[2025-06-11 05:30] LABS: CREATININE 1.11 MG/DL (0.60-1.10); TOTAL CARBON DIOXIDE 28.4 MMOL/L (24-32); eCRCL 83 ML/MIN; eGFR 68 ML/MIN
[2025-06-11 05:41] LABS: MEAN PLATELET VOLUME 9.2 FL (7.4-10.4); RED CELL DISTRIBUTION WIDTH 14.2 % (11.5-14.5)
[2025-06-11 06:03] LABS: BANDS% (MANUAL) 1.0 % (0-10); LYMPHOCYTES % (MANUAL) 3.0 % (21-51); METAMYLEOCYTES% (MANUAL) 1.0 % (0-0); MONOCYTES % (MANUAL) 4.0 % (2-12); NEUTROPHILS % (MANUAL) 91.0 % (42-75); PLATELET ESTIMATE NORMAL
--- NOTE | 2025-06-11 07:58 | PROGRESS NOTE ---
Progress Note Ortho Ortho Post Op Day #: 1 Follow Up KESHA REBOLLEDO No new complaints Exam Exam: Alert and Oreinted x4, Vital signs are stable, Wound clean and dry Problem/Assessment/Plan Problems/Diagnosis: (1) Foot pain (2) Cellulitis (3) Post surgical complication Additional Plan From an orthopedic standpoint I would not object to him being discharged. However I would defer to Dr. Dan recommendation of long-term IV antibiotics. Results/Orders Result Diagram: 06/11/25 04206/11/25 042 Problem Qualifiers (1) Foot pain: Qualified Codes: M79.671 - Pain in right foot (2) Cellulitis: MARY CHIN Jr., MD Jun 11, 2025 07:58
[2025-06-11] MEDS: normal saline 1000ml 1,000 ML IV SCH (11:07)
--- NOTE | 2025-06-11 16:45 | PROGRESS NOTE- Residence ---
Progress Note - Resident Providers to CC Resident Creating Document: CAIN RUELAS RES ~ Antibiotic Timeout Antibiotic Ordered?: Yes Subjective Patient was seen and examined at bedside. He is pain-free and grateful for the procedure. He underwent hardware removal with removal of eight screws, I&D also performed. Dr. Lopez cleared him for discharge. The patient remains on IV vancomycin and oral ciprofloxacin. However, there is an insurance coverage issue; his current plan (if there is any) may not cover outpatient IV antibiotics, though coverage may potentially be reinstated later in June. Case management is actively working on antibiotics arrangements, including the following options: Discharged with IV antibiotics if coverage is secured, or interim p.o. antibiotics until insurance is reinstated. Objective Vital Signs Date Time Temp Pulse Resp B/P (MAP) Pulse Ox O2 Delivery O2 Flow Rate FiO2 06/11/25 10:00 97.1 75 19 147/83 (104) 96 Nasal Cannula 2.0 General: Morbidly obese male, Awake and Alert, no acute distress. HEENT: Conjunctiva pink, Sclera clear, Mucus Membranes moist. Neck: Supple without masses and tenderness. Resp: Unlabored. Lungs clear to auscultation bilaterally. Heart: Regular Rate and rhythm, normal S1 and S2 without murmur, rub or gallop. Abdomen: Soft and non tender no organomegaly Extremities: Right foot Postprocedure dressing; dry and clean; no leakage or discharge Skin: Warm and Dry. Result Diagram: 06/11/2542006/11/25420 Advance Care Planning Advanced Care plannin - 30 Minutes Assessment Assessment Mr. Tony is presented with right foot pain, fever, and chills for the past two days. He reports that the pain worsens with ambulation. His primary care physician, Dr. Lopez referred him to Dr. Alston (in February) for evaluation of recurrent right foot infection. At that time, and MRI demonstrated findings concerning for infection of the fixation patrick. The patient was advised that long-term IV antibiotics would be necessary prior to patrick removal. He had recently completed a two weeks' course of oral antibiotic which he does not remember the name. He reports that antibiotics help reduce swelling and erythema. However, his current presentation is notable for recurrence of symptoms; fever, chills, malaise prompting him to return. Plan Plan 1. Right foot cellulitis with possible phlegmon Patient not in SIRS WBC trending down to 13.2 from 16.6. ESR 60, CRP elevated; 12.34. CT; soft tissue inflammatory changes, likely cellulitis with possible phlegmon No CTA evidence of calcaneal osteomyelitis Plan: Broad-spectrum IV antibiotics; vancomycin IV pharmacy to dose day 3 and ceftriaxone 1 g IV daily day 2 . Discontinued Zosyn 4.5 g IV daily Trend CBC, ESR, CRP IV hydration; NS 100 mL/hour 06/10/2025: Dr. Dan on board, recommendation on prolonged IV antibiotic therapy pending June 11, 2025: Underwent hardware removal by Dr. Lopez yesterday. Cleared him for discharge On IV vancomycin and p.o. ciprofloxacin now 2. Possible hardware/underlying osteomyelitis CT does not show osteomyelitis but can not fully exclude ESR 60 Plan Continue IV vancomycin and p.o. ciprofloxacin Orthopedic consult; Dr. Lopez ; scheduled for foot hardware removal on Tuesday Ordered preop chest x-ray and plant assigner for systemic signs of worsening infection 06/10/2025: Currently in OR, undergoing removal of hardware June 11, 2025: Underwent hardware removal On IV vancomycin and p.o. ciprofloxacin 3. Urinary tract infection UA suggestive of UTI Ceftriaxone 1 g IV daily initiated today Hydration with 100 mL per hour IV normal saline 06/10/2025: Urine culture grew Pseudomonas aeruginosa pansensitive sensitive including 2 levofloxacin. Ceftriaxone discontinued the levofloxacin initiated. June 10, 2025: Ciprofloxacin p.o. 4. Morbid obesity Increases risk for recurrent cellulitis and impaired wound healing Mobility encouragement, foot care education, nutrition consult 5. Primary Hypertension Amlodipine 10 mg p.o. daily 6. Hyperlipidemia Lipid panel ordered Continue atorvastatin 40 mg p.o. daily 7. History of methamphetamine use disorder Quit one year ago, no active use reported Urine toxicology positive for methamphetamine Substance use navigator consult requested 8. Protein calorie malnutrition Serum albumin 2.7 Nutrition consult 9. Complex regional pain syndrome type 1 Consider if pain appears disproportionate to infection severity, persists despite adequate antibiotic therapy and is accompanied by trophic, autonomic changes On Ativan 1 mg q.8h p.o. p.r.n. for anxiety Code status: Full code DVT prophylaxis: Lovenox 40 mg subcutaneous daily Analgesia/sedation: Morphine/[place] Line/tube: PIV GI prophylaxis: None Nutrition: Regular diet PT: Ordered. Prognosis: Guarded Disposition: Continue medical management. NPO from midnight. Implant removal surgery with Dr. Lopez planned for tomorrow. Cain Ruelas Internal Medicine Resident, PGY-3 Date of Service: Jun 11, 2025 Billing Provider: CHELLY LEMUS MD Common Visit Codes: [id number] INP/OBS CARE(HIGH) CAIN RUELAS, RES Jun 11, 2025 16:44 CHELLY LEMUS MD Jun 12, 2025 08:26
[2025-06-11] MEDS: ciprofloxacin 250mg tablet PO SCH (22:43)
[2025-06-12] MEDS: VANCOmycin 1250MG/NS 250ml Bag 250 ML IV SCH (00:35)
[2025-06-12 05:04] LABS: MEAN PLATELET VOLUME 8.9 FL (7.4-10.4); RED CELL DISTRIBUTION WIDTH 14.2 % (11.5-14.5)
[2025-06-12 05:09] LABS: CREATININE 0.94 MG/DL (0.60-1.10); TOTAL CARBON DIOXIDE 31.1 MMOL/L (24-32); eCRCL 98 ML/MIN; eGFR 82 ML/MIN
[2025-06-12 06:00] VITALS: BP 127/69; PULSE 63; RESP 14; TEMP 97.7; O2SAT 95
[2025-06-12 11:00] VITALS: BP 131/69; PULSE 71; RESP 17; TEMP 97.5; O2SAT 95
[2025-06-12 11:23] VITALS: RESP 17; O2SAT 95
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
--- NOTE | 2025-06-12 13:52 | PROGRESS NOTE ---
Progress Note Dictate Providers to CC ~ Subjective Subjective: His insurance apparently kicked in today. He would like to get out of the hospital soon. He understands that we still need to get a outpatient IV established along with approval for his antibiotics. Objective Objective: GENERAL: He is a stable-appearing middle-aged male. LUNGS: Clear to auscultation bilaterally. HEART: Regular rate and rhythm. ABDOMEN: Obese, soft, and nontender. EXTREMITIES: Distal right lower extremity is currently bandaged. Lab Results: 06/12/2543406/12/25434 Lab comments: Wound culture pending Problem\Assessment\Plan Additional Plan Infection of the distal right lower extremity s/p HWR with debridement. Osteomyelitis has been identified during the course of this illness Suspect Gram-positive involvement, but Gram-negatives including Pseudomonas are possible Vancomycin will be changed over to daptomycin 850 mg daily This works out to about 8 mg/kg based on adjusted body weight He will need 6 weeks of therapy We will also need six weeks of oral therapy with ciprofloxacin 750 mg daily He should follow up with me in the outpatient setting Weekly lab monitoring PICC placement today Offloading and wound care 50 minutes time spent [id number], discussion with resident, discussion with nursing, orders and documentation. CHINO PETERS MD Jun 12, 2025 13:52
[2025-06-12] MEDS: DAPTOMYCIN IV SCH (15:14)
[2025-06-12] MEDS: NORMAL SALINE IV SCH (15:14)
--- NOTE | 2025-06-12 16:56 | PROGRESS NOTE- Residence ---
Progress Note - Resident Providers to CC Resident Creating Document: CAIN RUELAS RES ~ Antibiotic Timeout Antibiotic Ordered?: Yes Subjective The patient was seen and examined at bedside. He is doing well. His pain is controlled. Infectious disease recommends a total of six weeks of antibiotics i.e. daptomycin 850 mg IV daily and ciprofloxacin 750 mg p.o. daily. He is to follow up with Dr. Dan as an outpatient and will require weekly lab monitoring. A PICC line will be placed tomorrow for IV infusions. The patient is stable and ready for discharge tomorrow; waiting for case management arrangements. Objective Vital Signs Date Time Temp Pulse Resp B/P (MAP) Pulse Ox O2 Delivery O2 Flow Rate FiO2 06/12/25 11:23 17 95 Room Air 0.0 06/12/25 11:00 97.5 71 131/69 (89) General: Morbidly obese male, Awake and Alert, no acute distress. HEENT: Conjunctiva pink, Sclera clear, Mucus Membranes moist. Neck: Supple without masses and tenderness. Resp: Unlabored. Lungs clear to auscultation bilaterally. Heart: Regular Rate and rhythm, normal S1 and S2 without murmur, rub or gallop. Abdomen: Soft and non tender no organomegaly Extremities: Right foot Postprocedure dressing; dry and clean; no leakage or discharge Skin: Warm and Dry. Result Diagram: 06/12/25 0435 06/12/25434 Advance Care Planning Advanced Care plannin - 30 Minutes Assessment Assessment Mr. Tony is presented with right foot pain, fever, and chills for the past two days. He reports that the pain worsens with ambulation. His primary care physician, Dr. Lopez referred him to Dr. Alston (in February) for evaluation of recurrent right foot infection. At that time, and MRI demonstrated findings concerning for infection of the fixation patrick. The patient was advised that long-term IV antibiotics would be necessary prior to patrick removal. He had recently completed a two weeks' course of oral antibiotic which he does not remember the name. He reports that antibiotics help reduce swelling and erythema. However, his current presentation is notable for recurrence of symptoms; fever, chills, malaise prompting him to return. Plan Plan 1. Right foot cellulitis with possible phlegmon Patient not in SIRS WBC trending down to 13.2 from 16.6. ESR 60, CRP elevated; 12.34. CT; soft tissue inflammatory changes, likely cellulitis with possible phlegmon No CTA evidence of calcaneal osteomyelitis Plan: Broad-spectrum IV antibiotics; vancomycin IV pharmacy to dose day 3 and ceftriaxone 1 g IV daily day 2 . Discontinued Zosyn 4.5 g IV daily Trend CBC, ESR, CRP IV hydration; NS 100 mL/hour 06/10/2025: Dr. Dan on board, recommendation on prolonged IV antibiotic therapy pending June 11, 2025: Underwent hardware removal by Dr. Lopez yesterday. Cleared him for discharge On IV vancomycin and p.o. ciprofloxacin now The patient remains on IV vancomycin and oral ciprofloxacin. However, there is an insurance coverage issue; his current plan (if there is any) may not cover outpatient IV antibiotics, though coverage may potentially be reinstated later in June. Case management is actively working on antibiotics arrangements, including the following options: Discharged with IV antibiotics if coverage is secured, or interim p.o. antibiotics until insurance is reinstated. June 12, 2025 Infectious disease recommends a total of six weeks of antibiotics i.e. daptomycin 850 mg IV daily and ciprofloxacin 750 mg p.o. daily. He is to follow up with Dr. Dan as an outpatient and will require weekly lab monitoring. A PICC line will be placed tomorrow for IV infusions. The patient is stable and ready for discharge tomorrow; waiting for case management arrangements. 2. Possible hardware/underlying osteomyelitis CT does not show osteomyelitis but can not fully exclude ESR 60 Plan Continue IV vancomycin and p.o. ciprofloxacin Orthopedic consult; Dr. Lopez ; scheduled for foot hardware removal on Tuesday Ordered preop chest x-ray and educational consultant for systemic signs of worsening infection 06/10/2025: Currently in OR, undergoing removal of hardware June 11, 2025: Underwent hardware removal On IV vancomycin and p.o. ciprofloxacin 3. Urinary tract infection UA suggestive of UTI Ceftriaxone 1 g IV daily initiated today Hydration with 100 mL per hour IV normal saline 06/10/2025: Urine culture grew Pseudomonas aeruginosa pansensitive sensitive including 2 levofloxacin. Ceftriaxone discontinued the levofloxacin initiated. June 10, 2025: Ciprofloxacin p.o. 4. Morbid obesity Increases risk for recurrent cellulitis and impaired wound healing Mobility encouragement, foot care education, nutrition consult 5. Primary Hypertension Amlodipine 10 mg p.o. daily 6. Hyperlipidemia Lipid panel ordered Continue atorvastatin 40 mg p.o. daily 7. History of methamphetamine use disorder Quit one year ago, no active use reported Urine toxicology positive for methamphetamine Substance use navigator consult requested 8. Moderate Protein calorie malnutrition Serum albumin 2.7 Nutrition consult 9. Complex regional pain syndrome type 1 Consider if pain appears disproportionate to infection severity, persists despite adequate antibiotic therapy and is accompanied by trophic, autonomic changes On Ativan 1 mg q.8h p.o. p.r.n. for anxiety Code status: Full code DVT prophylaxis: Lovenox 40 mg subcutaneous daily Analgesia/sedation: Morphine/[place] Line/tube: PIV GI prophylaxis: None Nutrition: Regular diet PT: Ordered. Prognosis: Guarded Disposition: Continue medical management. NPO from midnight. Implant removal surgery with Dr. Lopez planned for tomorrow. Cain Ruelas Internal Medicine Resident, PGY-3 Date of Service: Jun 12, 2025 Billing Provider: CHELLY LEMUS MD Common Visit Codes: [id number] INP/OBS CARE(HIGH) CAIN RUELAS, RES Jun 12, 2025 16:56 CHELLY LEMUS MD Jun 13, 2025 08:04
[2025-06-12 18:00] VITALS: BP 133/55; PULSE 73; RESP 17; TEMP 97.5; O2SAT 94
[2025-06-12 22:00] VITALS: BP 105/66; PULSE 72; RESP 19; TEMP 97.3; O2SAT 95
[2025-06-13 06:00] VITALS: BP 126/64; PULSE 71; RESP 15; TEMP 97.7; O2SAT 94
[2025-06-13 10:00] VITALS: BP 126/75; PULSE 74; RESP 18; TEMP 97.3; O2SAT 95
[2025-06-13 10:38] VITALS: RESP 16; O2SAT 96
--- NOTE | 2025-06-13 18:22 | DISCHARGE SUMMARY-Residence ---
Discharge Summary Providers to CC Resident Creating Document: MORGANANTONIETTACAINKIRT ~ Discharge Summary Admission Diagnosis: hardware pain , r foot infection Hospital Course DATE OF ADMISSION: June 07, 2025 DATE OF DISCHARGE: June 13, 2025 Discharge Diagnosis\Comment: 1. Right foot cellulitis with possible phlegmon 2. Possible hardware/underlying osteomyelitis 3. Urinary tract infection, Pseudomonas aeruginosa 4. Morbid obesity 5. Primary Hypertension 6. Hyperlipidemia 7. Methamphetamine use disorder 8. Moderate Protein calorie malnutrition 9. Complex regional pain syndrome type 1 10. RASHAD, prerenal, likely renal tubular stasis Operations\Procedures: Hardware removal surgery Consultants: Dr. John Dan Complications: None Condition on DC: Stable Discharge Summary: History of Present Illness: The patient is a 59-year-old male with past medical history significant for morbid obesity (BMI 42.5), hypertension, cellulitis of the right foot, and methamphetamine use disorder. He is status post open reduction and fixation of the right foot. The patient is a poor historian and provides a fragmented history. He presents with right foot pain, fever, and chills for the past two days. He reports that the pain worsens with ambulation. His primary care physician, Dr. Lopez referred him to Dr. Alston (in February) for evaluation of recurrent right foot infection. At that time, and MRI demonstrated findings concerning for i nfection of the fixation patrick. The patient was advised that long-term IV antibiotics would be necessary prior to patrick removal. He had recently completed a two weeks' course of oral antibiotic which she does not remember the name. He reports that antibiotics help reduce swelling and erythema. However, his current presentation is notable for recurrence of symptoms; fever, chills, m alaise prompting him to return. He was admitted at [facility] from February 19 to for the same issue (right foot cellulitis). Hospital Course: Mr. Tony is presented with right foot pain, fever, and chills for the past two days. CT; soft tissue inflammatory changes, likely cellulitis with possible phlegmon. He had Right foot cellulitis with possible phlegmon; ESR 60, CRP elevated; 12.34 with marked leukocytosis (WBC 16.6). Initially started with IV Vancomycin and Zosyn. Later, Zosyn discontinued. Additionally, his UA was positive for UTI. Therefore, Ceftriaxone was added. Urine culture grew Pseudomonas aeruginosa pansensitive sensitive including to levofloxacin. Ceftriaxone discontinued the levofloxacin initiated. For Possible hardware/und erlying osteomyelitis, he was evaluated by Dr. Lopez and consequently underwent hardware removal on June 11, 2025. Infectious disease (Dr. Dan) recommended a total of six weeks of antibiotics i.e. daptomycin 850 mg IV daily and ciprofloxacin 750 mg p.o. daily. A PICC line was placed for IV infusions. Discharge Course: Patient is stable; his pain is controlled. He is to follow up with Dr. Dan as an outpatient and will require weekly lab monitoring. Wound care follow up is also arranged. He was instructed to follow up with his PCP in 1 week. Discharge Medications: Daptomycin 850 mg IV daily Ciprofloxacin 750 mg p.o. daily Amlodipine 10 mg po daily State [place] 5/325 mg p.o Q4H PRN Discharge physical exam: Vitals: afebrile, KS 71, RR 16, BP 126/75, perfusing well while breathing ambient air.\ General: Morbidly obese male, Awake and Alert, no acute distress. HEENT: Conjunctiva pink, Sclera clear, Mucus Membranes moist. Neck: Supple without masses and tenderness. Resp: Unlabored. Lungs clear to auscultation bilaterally. Heart: Regular Rate and rhythm, normal S1 and S2 without murmur, rub or gallop. Abdomen: Soft and non tender no organomegaly Extremities: Right foot Postprocedure dressing; dry and clean; no leakage or discharge Skin: Warm and Dry. IMAGING: Lower extremity CT on June 07, 2025: FINDINGS: Partially visualized postsurgical changes of prior open reduction internal fixation of the tibia. Postsurgical changes of arthrodesis at the 1st MTP joint. Visualized surgical hardware hardware appears intact. There is lucency at the base of the 1st proximal phalanx and portions of the 1st metatar steff head, may be seen with osteomyelitis, although only mild adjacent subcutaneous edema is seen with no organized fluid collection and no visualized adjacent wound. Possibly noninfective osteolysis. There is a wound at the posterior aspect of the foot near the level of the posterior calcaneus with adjacent soft tissue edema and skin thickening, likely cellulitis. No peripherally enhancing fluid collection identified to suggest abscess. No erosive changes or suspicious periosteal reaction or cortical destruction at the calcaneus to suggest osteomyelitis. There are moderate to severe arthritic changes at the 2nd tarsometatarsal joint. IMPRESSION: 1. Wound at the posterior aspect of the foot near the calcaneus with associated soft tissue inflammatory changes, likely cellulitis and possible phlegmon in the appropriate clinical setting. No peripherally enhancing collection to suggest abscess. No CT evidence for osteomyelitis in the calcaneus. 2. Postsurgical changes of arthrodesis at the 1st MTP joint. There is prominent lucency at the base of the proximal phalanx of the 1st digit and at the 1st metatarsal head without significant adjacent soft tissue inflammatory changes expected for osteomyelitis, possibly noninfective osteolysis. Correlate with clinical findings. *Problems/Diagnosis: (1) Foot pain Status: Acute (2) Cellulitis (3) Post surgical complication Status: Acute Total Time Spent on D/C: > 30 Minutes (40) Date of Service: Jun 13, 2025 Billing Provider: CHELLY LEMUS MD Common Visit Codes: 66122-FIG/OBS DISCH DAY >30min Problem Qualifiers (1) Foot pain: Laterality: right Qualified Codes: M79.671 - Pain in right foot (2) Cellulitis: Site of cellulitis: extremity Laterality: right CAIN MADISON, RES Jun 13, 2025 18:21 CHELLY LEMUS MD Jun 14, 2025 08:10
== END 2025-06-13 15:32 | disposition home health service (06) | DRG 908 ==
LOC: ER 09:22 → ED HOLD 11:46 → SUR 3N 16:00
PROVIDERS: ADMIT Internal Medicine; ATTEND Internal Medicine
PROC: BQ2 Imaging, Non-Axial Lower Bones, Computerized Tomography (CT Scan) (ICD-10-PCS; 2025-06-07)
PROC: 0QPL04Z Removal of Internal Fixation Device from Right Tarsal, Open Approach (ICD-10-PCS; principal; 2025-06-10 11:31)
PROC: 02HV33Z Insertion of Infusion Device into Superior Vena Cava, Percutaneous Approach (ICD-10-PCS; 2025-06-13)
PROC: 4A02X4A Measurement of Cardiac Electrical Activity, Guidance, External Approach (ICD-10-PCS; 2025-06-13)
DX: T85.79XA Infection and inflammatory reaction due to other internal prosthetic devices, implants and grafts, initial encounter (principal); E44.0 Moderate protein-calorie malnutrition; G90.521 Complex regional pain syndrome I of right lower limb; L03.115 Cellulitis of right lower limb; N39.0 Urinary tract infection, site not specified; Z68.41 Body mass index [BMI] 40.0-44.9, adult; M86.8X7 Other osteomyelitis, ankle and foot; E66.01 Morbid (severe) obesity due to excess calories; I10 Essential (primary) hypertension; F17.210 Nicotine dependence, cigarettes, uncomplicated; E78.5 Hyperlipidemia, unspecified; Y83.8 Other surgical procedures as the cause of abnormal reaction of the patient, or of later complication, without mention of misadventure at the time of the procedure; Y92.89 Other specified places as the place of occurrence of the external cause
CPT/HCPCS: 20680; 36569; 96365; 96367; 99285; Z7506; Z7508; 36415; 71045; 73590; 73630; 73701; 76942; 80048; 80061; 80202; 80305; 81001; 82550; 82948; 83036; 83605; 84145; 85007; 85025; 85651; 86140; 87040; 87070; 87075; 87077; 87081; 87088; 87186; 93005; 97116; 97161; A4215; A4615; A4618; A4620; A6222; A6258; A6449; A6590; A7000; C1751; G0378; J0131; J0696; J0878; J1100; J1650; J1956; J2003; J2250; J2405; J2543; J2704; J2710; J2795; J3010; J3373; J3374; J3490; J7030; J7040; J7120; Q9967

== ENCOUNTER 2025-07-25 12:08 | Emergency (ER) | payer BC, MEDICAID ==
[~2025-07-25] VITALS: Ht 188 cm; Wt 153.0 kg
[2025-07-25 12:23] VITALS: TEMP 97.1
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
[2025-07-25 13:42] LABS: MEAN PLATELET VOLUME 9.1 FL (7.4-10.4); RED CELL DISTRIBUTION WIDTH 14.4 % (11.5-14.5)
[2025-07-25 13:51] LABS: CREATININE 0.94 MG/DL (0.60-1.10); TOTAL CARBON DIOXIDE 28.5 MMOL/L (24-32); eCRCL 98 ML/MIN; eGFR 82 ML/MIN
[2025-07-25 14:37] VITALS: BP 153/97; PULSE 69; RESP 16; O2SAT 97
== END 2025-07-25 14:38 | disposition home or self-care (01) ==
LOC: ER 12:08
DX: L03.115 Cellulitis of right lower limb (principal); F14.90 Cocaine use, unspecified, uncomplicated; F15.90 Other stimulant use, unspecified, uncomplicated
CPT/HCPCS: 36415; 80048; 83605; 84145; 85025; 87040; 99283